=== PATIENT | female | born 1955 | race Caucasian/White ===

== ENCOUNTER 2017-02-03 12:49 | Outpatient (CLI) ==
[2013-03-01 07:18] VITALS: TEMP 98.5
--- NOTE | 2017-02-07 15:36 | MAMMO ---
EXAM: Bilateral digital screening mammogram History: Screening Comparison: Bilateral mammogram 12/10/2015 Findings: MLO and CC views of bilateral breasts demonstrate scattered fibroglandular breast parench yma. Stable benign bilateral breast calcifications. There are no dominant masses, no suspicious mi crocalcifications and no architectural distortions. Stable benign bilateral breast nodules. Impression: Benign stable mammogram. Recommend followup routine screening mammography in 1 year. BIRADS 2
== END 2017-02-03 12:50 | disposition home or self-care (01) ==
LOC: RAD 12:49
PROVIDERS: ATTEND Internal Medicine
DX: Z12.31 Encounter for screening mammogram for malignant neoplasm of breast (principal)

== ENCOUNTER 2017-05-18 08:17 | Outpatient (CLI) ==
[2013-03-01 07:18] VITALS: TEMP 98.5
[2017-05-18 09:01] LABS: ALBUMIN 3.7 g/dL (3.4-5.0); ALBUMIN/GLOBULIN RATIO 1.12; ANION GAP 15.4; BILIRUBIN,TOTAL 0.89 mg/dL (0.00-1.20); BUN/CREATININE RATIO 23.45; CALCIUM 10.6 mg/dL (8.2-10.2); CREATININE 0.81 mg/dL (0.60-1.30); MAGNESIUM 1.9 mg/dL (1.7-2.2); POTASSIUM 3.4 mmol/L (3.5-5.10); URIC ACID 6.5 mg/dL (2.4-6.0)
== END 2017-05-18 08:18 | disposition home or self-care (01) ==
LOC: LAB 08:17
PROVIDERS: ATTEND Internal Medicine
DX: R73.03 Prediabetes (principal); E78.5 Hyperlipidemia, unspecified
CPT/HCPCS: 36415; 80053; 80061; 83036; 83735; 84100; 84550

== ENCOUNTER 2017-06-15 10:00 | Outpatient (CLI) | payer OTHER ==
[2013-03-01 07:18] VITALS: TEMP 98.5
[2017-06-15 10:50] LABS: ALBUMIN 3.7 g/dL (3.4-5.0); ALBUMIN/GLOBULIN RATIO 0.93; ANION GAP 13.4; BILIRUBIN,TOTAL 0.7 mg/dL (0.00-1.20); BUN/CREATININE RATIO 23.17; CALCIUM 10.4 mg/dL (8.2-10.2); CHOL/HDL RATIO 7.3 (4.5-5.5); CREATININE 0.82 mg/dL (0.60-1.30); MAGNESIUM 2.1 mg/dL (1.7-2.2); PHOSPHORUS 3.1 mg/dL (2.8-4.1); POTASSIUM 4.4 mmol/L (3.5-5.10); TOTAL PROTEIN 7.7 g/dL (5.8-8.1); URIC ACID 7.2 mg/dL (2.4-6.0)
== END 2017-06-15 10:01 | disposition home or self-care (01) ==
LOC: LAB 10:00
PROVIDERS: ATTEND Internal Medicine
DX: E78.5 Hyperlipidemia, unspecified (principal); F60.9 Personality disorder, unspecified
CPT/HCPCS: 36415; 80053; 80061; 83735; 84100; 84550

== ENCOUNTER 2017-07-13 07:44 | Outpatient (CLI) | payer OTHER ==
[2013-03-01 07:18] VITALS: TEMP 98.5
[2017-07-13 08:15] LABS: ALBUMIN 3.6 g/dL (3.4-5.0); ALBUMIN/GLOBULIN RATIO 0.92; ANION GAP 11.8; BILIRUBIN,TOTAL 0.55 mg/dL (0.00-1.20); BUN/CREATININE RATIO 25.6; CALCIUM 9.8 mg/dL (8.2-10.2); CHOL/HDL RATIO 4.5 (4.5-5.5); CREATININE 0.82 mg/dL (0.60-1.30); POTASSIUM 3.8 mmol/L (3.5-5.10); TOTAL PROTEIN 7.5 g/dL (5.8-8.1); URIC ACID 5.6 mg/dL (2.4-6.0)
== END 2017-07-13 07:45 | disposition home or self-care (01) ==
LOC: LAB 07:44
PROVIDERS: ATTEND Internal Medicine
DX: E78.5 Hyperlipidemia, unspecified (principal); E79.0 Hyperuricemia without signs of inflammatory arthritis and tophaceous disease
CPT/HCPCS: 36415; 80053; 80061; 84550

== ENCOUNTER 2017-08-11 07:44 | Outpatient (CLI) ==
[2013-03-01 07:18] VITALS: TEMP 98.5
[2017-08-11 08:38] LABS: ALBUMIN/GLOBULIN RATIO 1.08; ANION GAP 13.7; BILIRUBIN,TOTAL 0.6 mg/dL (0.00-1.20); BUN/CREATININE RATIO 22.89; CALCIUM 10.1 mg/dL (8.2-10.2); CHOL/HDL RATIO 4.5 (4.5-5.5); CREATININE 0.83 mg/dL (0.60-1.30); POTASSIUM 3.7 mmol/L (3.5-5.10); TOTAL PROTEIN 7.7 g/dL (5.8-8.1)
== END 2017-08-11 07:45 | disposition home or self-care (01) ==
LOC: LAB 07:44
PROVIDERS: ATTEND Internal Medicine
DX: R73.03 Prediabetes (principal); E78.5 Hyperlipidemia, unspecified
CPT/HCPCS: 36415; 80053; 80061; 83036

== ENCOUNTER 2017-10-06 07:36 | Outpatient (CLI) ==
[2013-03-01 07:18] VITALS: TEMP 98.5
== END 2017-10-06 07:37 | disposition home or self-care (01) ==
LOC: LAB 07:36
PROVIDERS: ATTEND Physician Assistant
DX: R73.03 Prediabetes (principal)
CPT/HCPCS: 36415; 80053; 82465; 83036; 83735; 84100; 84550

== ENCOUNTER 2017-11-30 08:08 | Outpatient (CLI) | payer OTHER ==
[2013-03-01 07:18] VITALS: TEMP 98.5
== END 2017-11-30 08:09 | disposition home or self-care (01) ==
LOC: LAB 08:08
PROVIDERS: ATTEND Internal Medicine
DX: E78.5 Hyperlipidemia, unspecified (principal)
CPT/HCPCS: 36415; 80053; 82465; 83735

== ENCOUNTER 2018-03-30 12:44 | Outpatient (CLI) ==
[2013-03-01 07:18] VITALS: TEMP 98.5
--- NOTE | 2018-03-30 14:05 | DEXA ---
EXAM: Bone densitometry. History: Postmenopausal. Findings: Evaluation of the left hip reveals a total bone mineral density of 0.886 grams per centimeter squared with T-score of negative 1.0. Evaluation of the right hip reveals a total bone mineral density of 0.879 grams per centimeter square d with T-score of negative 1.0. Impression: Normal bone mineral density of bilateral hips
== END 2018-03-30 12:45 | disposition home or self-care (01) ==
LOC: RAD 12:44
PROVIDERS: ATTEND Nurse Practitioner Obstetrics & Gynecology
DX: Z12.31 Encounter for screening mammogram for malignant neoplasm of breast (principal); N95.1 Menopausal and female climacteric states
CPT/HCPCS: 77067

== ENCOUNTER 2018-05-30 07:24 | Day surgery (SDC) ==
[2018-05-30] MEDS ORDERED: LIDOCAINE 1% 20 ML MDV ID STA (07:59)
[2018-05-30 08:02] VITALS: TEMP 97.4
[2018-05-30] MEDS ORDERED: DIPRIVAN 20 ML VIAL IVP ONE (09:35)
[2018-05-30] MEDS ORDERED: VERSED ONE (09:35)
[2018-05-30 10:15] VITALS: BP 110/63
--- NOTE | 2018-05-31 08:05 | OP ---
PROCEDURE: COLONOSCOPY TO THE CECUM. ENDOSCOPIST: Van PRICE M.D. INDICATION: HISTORY OF POLYPS INSTRUMENT: [id number]. MEDICATION: PER ANESTHESIA. PROCEDURE: The patient was positioned for colonoscopy. The digital rectal exam was negative. The colonoscope was inserted through the anus and advanced to the cecum. The cecum was identified using the ileocecal valve and the appendiceal orifice as landmarks. The scope was slowly withdrawn through an adequately prepped colon. [place] Bowel Prep score equals 9. Diverticulosis noted in the left colon. Retroflex exam was otherwise normal. Withdraw time 9 minutes and 31 seconds. PLAN: 1. Repeat colonoscopy for surveillance in 5 years. CC:Dr. Landon SALCIDO
== END 2018-05-30 10:40 | disposition home or self-care (01) ==
LOC: SURG 07:24
PROVIDERS: ATTEND Internal Medicine Gastroenterology
DX: Z86.010 Personal history of colon polyps (principal); K57.90 Diverticulosis of intestine, part unspecified, without perforation or abscess without bleeding